=== PATIENT | male | born 1975 | race Caucasian/White ===

== ENCOUNTER 2016-03-21 10:19 | Inpatient (IN) | payer MEDICARE, OTHER ==
[~2016-03-21] VITALS: Ht 182.9 cm; Wt 86.2 kg
[~2016-03-21 10:19] MED LIST: CARI350T PO; HYDR1TAB PO; OXYC-128 PO
[2016-03-21] MEDS ORDERED: MORPHINE SULFATE INJ 4 MG/ML DISP.SYRIN ONE (10:29)
[2016-03-21] MEDS ORDERED: ONDANSETRON HCL/PF 4 MG/2 ML VIAL ONE (10:29)
[2016-03-21] MEDS ORDERED: IV NS 0.9% 1,000 ML ONE (10:32)
[2016-03-21] MEDS ORDERED: IV SET PRIMARY 1 EA INFUS.SET MC ONE ×2 (10:32→12:32)
[2016-03-21] MEDS ORDERED: HYDROMORPHONE 1 MG/1 ML DISP.SYRIN ONE (10:47)
[2016-03-21 10:49] LABS: BASOPHILS % (AUTO) 0.1 % (0.0-2.0); DIFF TOTAL % 100 %; HEMATOCRIT 46 % (39-51); HEMOGLOBIN 15.8 g/dL (13.5-17.5); LYMPHOCYTES # (AUTO) 0.7 /CMM (0.8-4.8); MEAN CORPUSCULAR HEMOGLOBIN 29 PG (26.0-33.0); MEAN CORPUSCULAR HGB CONC 34 g/dl (31.0-36.0); MEAN CORPUSCULAR VOLUME 85 fL (80-96); MONOCYTES % (AUTO) 5.3 % (2.0-12.0); NEUTROPHILS # (AUTO) 16.7 /CMM (1.8-8.9); NEUTROPHILS % (AUTO) 90.6 % (43.0-81.0); PLATELET COUNT (AUTO) 246 /CMM (150-450); RED BLOOD CELL COUNT(AUTO) 5.44 MIL/uL (4.5-6.0); WHITE BLOOD COUNT (AUTO) 18.4 K/uL (4.3-11.0)
[2016-03-21 10:50] LABS: CALCIUM, SERUM 8.3 mg/dL (8.5-10.1); CREATININE 1.2 mg/dL (0.6-1.3); POTASSIUM 3.3 mmol/L (3.5-5.1)
[2016-03-21 10:57] LABS: ALBUMIN 3.7 g/dL (3.4-5.0); BILIRUBIN,DIRECT 1.8 mg/dL (0.0-0.2); BILIRUBIN,TOTAL 3.3 mg/dL (0.2-1.0); INDIRECT BILIRUBIN 1.5 mg/dL (0.0-1.1); TOTAL PROTEIN, SERUM 7.2 g/dL (6.4-8.2)
[2016-03-21] MEDS ORDERED: ONDANSETRON HCL/PF 4 MG/2 ML VIAL IVP ONE (11:00)
[2016-03-21] MEDS ORDERED: MORPHINE SULFATE INJ 2 MG/ML DISP.SYRIN IV ONE (11:00)
[2016-03-21] MEDS ORDERED: HYDROMORPHONE 1 MG/1 ML DISP.SYRIN IV ONE (11:00)
[2016-03-21] MEDS ORDERED: IV NS 0.9% 1,000 ML BAG IV ONE (11:00)
[2016-03-21] MEDS ORDERED: PIPERACILLIN /TAZOBACTAM 3.375 G in IV D5W 50 ML IV ONE (12:00)
[2016-03-21 12:21] LABS: KETONES,URINE 40 (NEGATIVE); LEUKOCYTE ESTERASE ,URINE Negative (NEGATIVE); PH,URINE 7.5 (5.0-8.0)
[2016-03-21 12:31] LABS: ADD UA MICROSCOPIC YES
[2016-03-21 12:50] LABS: ADD URINE CULTURE NO; RBC,URINE 0-2 /HPF (0-2); WBC,URINE 0-2 /HPF (0-3)
[2016-03-21 13:07] VITALS: BP 112/65
[2016-03-21] MEDS ORDERED: Potassium Chloride 20 MEQ in IV D5/ 0.9% NACL 1,000 ML IV PRN (13:30)
[2016-03-21] MEDS ORDERED: Lexapro (13:32)
[2016-03-21] MEDS ORDERED: abilify (13:32)
[2016-03-21] MEDS ORDERED: IV SET PRIMARY PUMP SET 1 EA INFUS.SET MC ONE ×3 (13:54→16:22)
[2016-03-21] MEDS ORDERED: VANCOMYCIN 1 GM in IV D5W 250 ML IV ONE (14:00)
[2016-03-21] MEDS ORDERED: SECONDARY IV SET 1 EA INFUS.SET MC ONE ×2 (14:02→16:16)
[2016-03-21] MEDS: POTASSIUM CL. PREMIX PERIPHER. 50 ML IV SCH ×4 (14:26→17:59)
[2016-03-21] MEDS: IV D5/ 0.9% NACL 1,000 ML IV PRN ×2 (14:27→22:28)
[2016-03-21 14:57] LABS: ALBUMIN 3.2 g/dL (3.4-5.0); BILIRUBIN,DIRECT 1.2 mg/dL (0.0-0.2); BILIRUBIN,TOTAL 2.5 mg/dL (0.2-1.0); INDIRECT BILIRUBIN 1.3 mg/dL (0.0-1.1); TOTAL PROTEIN, SERUM 6.3 g/dL (6.4-8.2)
[2016-03-21 16:00] VITALS: BP 105/68
[2016-03-21] MEDS: MORPHINE SULFATE INJ 2 MG/ML DISP.SYRIN IV PRN ×2 (16:27→22:57)
[2016-03-21] MEDS: MEROPENEM 1 G in IV NS 0.9% 100 ML IV SCH ×2 (16:30→22:28)
[2016-03-21 20:00] VITALS: BP 99/54
[2016-03-21] MEDS ORDERED: FEE PK DOSING 1 MIN EA MC ONE (20:47)
[2016-03-21 22:55] VITALS: BP 105/58
[2016-03-21] MEDS: VANCOMYCIN 1 GM in IV D5W 250 ML IV SCH (23:59)
[2016-03-22] MEDS ORDERED: SECONDARY IV SET 1 EA INFUS.SET MC ONE
[2016-03-22] MEDS: MORPHINE SULFATE INJ 2 MG/ML DISP.SYRIN IV PRN ×3 (02:49→10:36)
[2016-03-22] MEDS: IV D5/ 0.9% NACL 1,000 ML IV PRN ×3 (06:40→22:17)
[2016-03-22] MEDS: MEROPENEM 1 G in IV NS 0.9% 100 ML IV SCH ×3 (06:40→22:16)
[2016-03-22 07:01] LABS: BASOPHILS % (AUTO) 0.3 % (0.0-2.0); DIFF TOTAL % 100 %; EOSINOPHILS % (AUTO) 0.3 % (0.0-6.0); HEMATOCRIT 39 % (39-51); HEMOGLOBIN 13.2 g/dL (13.5-17.5); INR 1.08 (0.87-1.13); LYMPHOCYTES # (AUTO) 1.2 /CMM (0.8-4.8); LYMPHOCYTES % (AUTO) 10.2 % (20.0-44.0); MEAN CORPUSCULAR HEMOGLOBIN 29 PG (26.0-33.0); MEAN CORPUSCULAR HGB CONC 34 g/dl (31.0-36.0); MEAN CORPUSCULAR VOLUME 86 fL (80-96); MONOCYTES # (AUTO) 0.8 /CMM (0.1-1.30); NEUTROPHILS # (AUTO) 9.6 /CMM (1.8-8.9); NEUTROPHILS % (AUTO) 82.2 % (43.0-81.0); PLATELET COUNT (AUTO) 222 /CMM (150-450); PROTHROMBIN TIME 11.7 SECS (9.5-12.7); RED BLOOD CELL COUNT(AUTO) 4.57 MIL/uL (4.5-6.0); WHITE BLOOD COUNT (AUTO) 11.7 K/uL (4.3-11.0)
[2016-03-22 07:15] LABS: ALBUMIN 2.7 g/dL (3.4-5.0); BILIRUBIN,TOTAL 1.2 mg/dL (0.2-1.0); CALCIUM, SERUM 7.8 mg/dL (8.5-10.1); CREATININE 0.9 mg/dL (0.6-1.3); POTASSIUM 3.6 mmol/L (3.5-5.1)
[2016-03-22] MEDS: VANCOMYCIN 1 GM in IV D5W 250 ML IV SCH ×3 (07:57→23:21)
[2016-03-22 08:00] VITALS: BP 101/82
[2016-03-22] MEDS: PANTOPRAZOLE 40 MG VIAL IV SCH (08:25)
[2016-03-22] MEDS ORDERED: ONDANSETRON HCL/PF 4 MG/2 ML VIAL IV PRN (14:00)
[2016-03-22] MEDS: HYDROMORPHONE INJ 2 MG/ML DISP.SYRIN IV PRN ×2 (14:11→18:25)
[2016-03-22] MEDS: ACETAMINOPHEN 325 MG TABLET PO PRN (15:42)
[2016-03-22 16:00] VITALS: BP 106/61
[2016-03-22 20:00] VITALS: BP 118/75
[2016-03-22] MEDS: ARIPIPRAZOLE 5 MG TABLET PO SCH ×2 (22:00→22:17)
[2016-03-23] MEDS: HYDROMORPHONE INJ 2 MG/ML DISP.SYRIN IV PRN ×5 (00:37→19:20)
[2016-03-23] MEDS: IV D5/ 0.9% NACL 1,000 ML IV PRN ×2 (05:31→18:27)
[2016-03-23] MEDS: MEROPENEM 1 G in IV NS 0.9% 100 ML IV SCH ×2 (06:01→14:33)
[2016-03-23 06:39] LABS: BASOPHILS % (AUTO) 0.2 % (0.0-2.0); DIFF TOTAL % 100 %; EOSINOPHILS # (AUTO) 0.3 /CMM (0.0-0.7); EOSINOPHILS % (AUTO) 3.9 % (0.0-6.0); HEMATOCRIT 35 % (39-51); HEMOGLOBIN 11.9 g/dL (13.5-17.5); LYMPHOCYTES # (AUTO) 1.6 /CMM (0.8-4.8); LYMPHOCYTES % (AUTO) 23.3 % (20.0-44.0); MEAN CORPUSCULAR HEMOGLOBIN 29 PG (26.0-33.0); MEAN CORPUSCULAR HGB CONC 34 g/dl (31.0-36.0); MEAN CORPUSCULAR VOLUME 86 fL (80-96); MONOCYTES # (AUTO) 0.7 /CMM (0.1-1.30); MONOCYTES % (AUTO) 9.5 % (2.0-12.0); NEUTROPHILS # (AUTO) 4.4 /CMM (1.8-8.9); NEUTROPHILS % (AUTO) 63.1 % (43.0-81.0); PLATELET COUNT (AUTO) 198 /CMM (150-450); RED BLOOD CELL COUNT(AUTO) 4.14 MIL/uL (4.5-6.0)
[2016-03-23] MEDS: VANCOMYCIN 1 GM in IV D5W 250 ML IV SCH ×2 (07:05→14:33)
[2016-03-23 07:09] LABS: ALBUMIN 2.6 g/dL (3.4-5.0); BILIRUBIN,DIRECT 0.1 mg/dL (0.0-0.2); BILIRUBIN,TOTAL 0.4 mg/dL (0.2-1.0); INDIRECT BILIRUBIN 0.3 mg/dL (0.0-1.1); PHOSPHORUS 2.2 mg/dL (2.5-4.9); TOTAL PROTEIN, SERUM 5.6 g/dL (6.4-8.2)
[2016-03-23] MEDS: ACETAMINOPHEN 325 MG TABLET PO PRN (07:13)
[2016-03-23 07:26] LABS: CALCIUM, SERUM 7.6 mg/dL (8.5-10.1); CREATININE 0.8 mg/dL (0.6-1.3); POTASSIUM 3.6 mmol/L (3.5-5.1)
[2016-03-23 08:00] VITALS: BP 120/74
[2016-03-23] MEDS: PANTOPRAZOLE 40 MG VIAL IV SCH (08:37)
[2016-03-23] MEDS ORDERED: ESCITALOPRAM OXALATE (10 MG) 10 MG TABLET PO SCH (09:00)
[2016-03-23] MEDS ORDERED: Sodium Phosphate 15 MMOL in IV D5W 250 ML IV ONE (09:30)
[2016-03-23] MEDS ORDERED: SECONDARY IV SET 1 EA INFUS.SET MC ONE (10:35)
[2016-03-23 16:00] VITALS: BP 122/98
[2016-03-23 20:29] VITALS: BP 124/72
[2016-03-24 06:36] LABS: CALCIUM, SERUM 7.9 mg/dL (8.5-10.1); CREATININE 0.7 mg/dL (0.6-1.3); POTASSIUM 3.5 mmol/L (3.5-5.1)
[2016-03-25] MEDS ORDERED: METR500T PO (09:16)
[2016-03-25] MEDS ORDERED: CIPR-262 PO (09:16)
[2016-03-25] MEDS ORDERED: ARIP5TAB4 PO (09:16)
[2016-03-25] MEDS ORDERED: ESCI10TA PO (09:16)
== END 2016-03-23 21:36 | disposition left against medical advice (07) | DRG 871 ==
LOC: ER 10:21 → MEDSG2 12:40
PROVIDERS: ADMIT Internal Medicine; ATTEND Internal Medicine
DX: A41.9 Sepsis, unspecified organism (principal); K85.10 Biliary acute pancreatitis without necrosis or infection; K80.00 Calculus of gallbladder with acute cholecystitis without obstruction; F32.9 Major depressive disorder, single episode, unspecified; G89.29 Other chronic pain; M54.30 Sciatica, unspecified side; E87.6 Hypokalemia; K76.0 Fatty (change of) liver, not elsewhere classified
CPT/HCPCS: 36415; 74181-TC; 76700-TC; 80048-TC; 80053-TC; 80076-TC; 80202-TC; 81000-TC; 82150-TC; 83605-TC; 83690-TC; 83735-TC; 84100-TC; 85025-TC; 85610-TC; 85730-TC; 87040-TC; 87081-TC; 87086-TC; 93307-TC; A4606; A9563; C9113; J1170; J2185; J2270; J2405; J2543; J3370; J3480; J7030; J7042; J7060; Z7610

== ENCOUNTER 2016-03-23 23:13 | Inpatient (IN) | payer MEDICARE, OTHER ==
[~2016-03-23] VITALS: Ht 182.9 cm; Wt 92.8 kg
[~2016-03-23 23:13] MED LIST changes: -CARI350T PO; -HYDR1TAB PO; +Lexapro; +abilify
[2016-03-24] MEDS ORDERED: ONDANSETRON HCL/PF 4 MG/2 ML VIAL IVP PRN (01:00)
[2016-03-24] MEDS ORDERED: ACETAMINOPHEN 325 MG TABLET PO PRN (01:00)
[2016-03-24] MEDS ORDERED: IV D5/ 0.9% NACL 1,000 ML IV SCH (01:00)
[2016-03-24] MEDS ORDERED: IV D5/ 0.9% NACL 1,000 ML IV ONE (01:04)
[2016-03-24] MEDS ORDERED: IV SET PRIMARY PUMP SET 1 EA INFUS.SET MC ONE (01:04)
[2016-03-24] MEDS ORDERED: VANCOMYCIN 1 GM in IV D5W 250 ML IV SCH ×2 (05:00→09:25)
[2016-03-24] MEDS ORDERED: SECONDARY IV SET 1 EA INFUS.SET MC ONE (05:04)
[2016-03-24] MEDS: MEROPENEM 1 G in IV NS 0.9% 100 ML IV SCH ×3 (05:18→21:16)
[2016-03-24 06:25] LABS: BASOPHILS % (AUTO) 0.3 % (0.0-2.0); DIFF TOTAL % 100 %; EOSINOPHILS # (AUTO) 0.3 /CMM (0.0-0.7); EOSINOPHILS % (AUTO) 4.5 % (0.0-6.0); HEMATOCRIT 35 % (39-51); HEMOGLOBIN 11.8 g/dL (13.5-17.5); LYMPHOCYTES # (AUTO) 1.9 /CMM (0.8-4.8); LYMPHOCYTES % (AUTO) 29.7 % (20.0-44.0); MEAN CORPUSCULAR HEMOGLOBIN 29 PG (26.0-33.0); MEAN CORPUSCULAR HGB CONC 34 g/dl (31.0-36.0); MEAN CORPUSCULAR VOLUME 85 fL (80-96); MONOCYTES # (AUTO) 0.5 /CMM (0.1-1.30); MONOCYTES % (AUTO) 8.3 % (2.0-12.0); NEUTROPHILS # (AUTO) 3.6 /CMM (1.8-8.9); NEUTROPHILS % (AUTO) 57.2 % (43.0-81.0); PLATELET COUNT (AUTO) 209 /CMM (150-450); RED BLOOD CELL COUNT(AUTO) 4.13 MIL/uL (4.5-6.0); WHITE BLOOD COUNT (AUTO) 6.4 K/uL (4.3-11.0)
[2016-03-24] MEDS ORDERED: HYDROMORPHONE INJ 2 MG/ML DISP.SYRIN ONE (06:58)
[2016-03-24] MEDS: HYDROMORPHONE INJ 2 MG/ML DISP.SYRIN IV PRN ×2 (07:06→11:13)
[2016-03-24 08:00] VITALS: BP 110/67
[2016-03-24] MEDS ORDERED: FEE PK DOSING 1 MIN EA MC ONE (09:29)
[2016-03-24] MEDS: PANTOPRAZOLE 40 MG VIAL IV SCH (09:36)
[2016-03-24] MEDS: IV D5/ 0.9% NACL 1,000 ML IV PRN ×2 (09:36→17:59)
[2016-03-24 10:27] LABS: ALBUMIN 2.6 g/dL (3.4-5.0); BILIRUBIN,DIRECT 0.1 mg/dL (0.0-0.2); BILIRUBIN,TOTAL 0.3 mg/dL (0.2-1.0); INDIRECT BILIRUBIN 0.2 mg/dL (0.0-1.1); TOTAL PROTEIN, SERUM 5.8 g/dL (6.4-8.2)
[2016-03-24 11:51] LABS: CALCIUM, SERUM 7.8 mg/dL (8.5-10.1); CREATININE 0.9 mg/dL (0.6-1.3); POTASSIUM 3.8 mmol/L (3.5-5.1)
[2016-03-24] MEDS: VANCOMYCIN 1 GM in IV D5W 250 ML IV SCH ×2 (14:50→22:23)
[2016-03-24 15:43] VITALS: BP 123/78
[2016-03-24 16:00] VITALS: BP 123/78
[2016-03-24 20:00] VITALS: BP 139/82
[2016-03-24] MEDS ORDERED: LORAZEPAM 0.5 MG TABLET PO PRN (20:00)
[2016-03-24] MEDS ORDERED: LORAZEPAM 0.5 MG TABLET ONE (20:16)
[2016-03-24] MEDS ORDERED: ARIPIPRAZOLE 5 MG TABLET PO SCH (22:00)
[2016-03-25] MEDS: HYDROMORPHONE INJ 2 MG/ML DISP.SYRIN IV PRN ×3 (00:10→10:06)
[2016-03-25] MEDS ORDERED: IV D5/ 0.9% NACL 1,000 ML IV ONE (02:14)
[2016-03-25] MEDS: IV D5/ 0.9% NACL 1,000 ML IV PRN (02:43)
[2016-03-25] MEDS: MEROPENEM 1 G in IV NS 0.9% 100 ML IV SCH (05:36)
[2016-03-25 06:53] LABS: BASOPHILS % (AUTO) 0.4 % (0.0-2.0); DIFF TOTAL % 100 %; EOSINOPHILS # (AUTO) 0.2 /CMM (0.0-0.7); EOSINOPHILS % (AUTO) 4.1 % (0.0-6.0); HEMATOCRIT 39 % (39-51); HEMOGLOBIN 13.2 g/dL (13.5-17.5); LYMPHOCYTES % (AUTO) 37.9 % (20.0-44.0); MEAN CORPUSCULAR HEMOGLOBIN 29 PG (26.0-33.0); MEAN CORPUSCULAR HGB CONC 34 g/dl (31.0-36.0); MEAN CORPUSCULAR VOLUME 85 fL (80-96); MONOCYTES # (AUTO) 0.5 /CMM (0.1-1.30); MONOCYTES % (AUTO) 10.4 % (2.0-12.0); NEUTROPHILS # (AUTO) 2.5 /CMM (1.8-8.9); NEUTROPHILS % (AUTO) 47.2 % (43.0-81.0); PLATELET COUNT (AUTO) 243 /CMM (150-450); RED BLOOD CELL COUNT(AUTO) 4.61 MIL/uL (4.5-6.0); WHITE BLOOD COUNT (AUTO) 5.3 K/uL (4.3-11.0)
[2016-03-25 07:28] LABS: CREATININE 0.8 mg/dL (0.6-1.3); PHOSPHORUS 3.1 mg/dL (2.5-4.9); POTASSIUM 3.5 mmol/L (3.5-5.1)
[2016-03-25] MEDS: VANCOMYCIN 1 GM in IV D5W 250 ML IV SCH (07:49)
[2016-03-25 08:00] VITALS: BP 129/75
[2016-03-25] MEDS: PANTOPRAZOLE 40 MG VIAL IV SCH (08:56)
[2016-03-25] MEDS ORDERED: ESCITALOPRAM OXALATE (10 MG) 10 MG TABLET PO SCH (09:00)
[2016-03-25] MEDS ORDERED: ARIP5TAB4 PO (09:16)
[2016-03-25] MEDS ORDERED: CIPR-262 PO (09:16)
[2016-03-25] MEDS ORDERED: ESCI10TA PO (09:16)
[2016-03-25] MEDS ORDERED: METR500T PO (09:16)
== END 2016-03-25 10:30 | disposition home or self-care (01) | DRG 871 ==
LOC: ER 23:17 → TELE2 23:51 → MEDSG2 03-24 07:05
PROVIDERS: ADMIT Nurse Practitioner Acute Care; ATTEND Nurse Practitioner Acute Care
DX: A41.9 Sepsis, unspecified organism (principal); K85.10 Biliary acute pancreatitis without necrosis or infection; K80.00 Calculus of gallbladder with acute cholecystitis without obstruction; K76.0 Fatty (change of) liver, not elsewhere classified; R16.0 Hepatomegaly, not elsewhere classified; M54.30 Sciatica, unspecified side; G89.29 Other chronic pain; F32.9 Major depressive disorder, single episode, unspecified; F43.10 Post-traumatic stress disorder, unspecified; E87.6 Hypokalemia; D63.8 Anemia in other chronic diseases classified elsewhere; E16.2 Hypoglycemia, unspecified; F41.9 Anxiety disorder, unspecified; Z68.28 Body mass index [BMI] 28.0-28.9, adult; Z91.5 Personal history of self-harm
CPT/HCPCS: 36415; 80048-TC; 80076-TC; 80202-TC; 83690-TC; 83735-TC; 84100-TC; 85025-TC; 87081-TC; A4606; C9113; J1170; J2185; J3370; J7030; J7042; J7060; Z7610

== ENCOUNTER 2016-05-16 01:54 | Emergency (ER) | payer MEDICARE, OTHER ==
[~2016-05-16] VITALS: Ht 182.9 cm; Wt 88.5 kg
[~2016-05-16 01:54] MED LIST changes: +ARIP5TAB4 PO; +CIPR-262 PO; +ESCI10TA PO; -Lexapro; +METR500T PO; -abilify
[2016-05-16] MEDS ORDERED: ONDANSETRON HCL/PF 4 MG/2 ML VIAL ONE (02:21)
[2016-05-16] MEDS ORDERED: KETOROLAC TROMETHAMINE INJ 30 MG/ML VIAL ONE (02:21)
[2016-05-16] MEDS ORDERED: IV SET PRIMARY 1 EA INFUS.SET MC ONE (02:21)
[2016-05-16] MEDS ORDERED: IV NS 0.9% 500 ML IV ONE (02:21)
[2016-05-16] MEDS ORDERED: HYDROMORPHONE 1 MG/1 ML DISP.SYRIN ONE ×2 (02:21→03:02)
[2016-05-16] MEDS ORDERED: IV NS 0.9% 500 ML BAG IV ONE (02:30)
[2016-05-16] MEDS ORDERED: ONDANSETRON HCL/PF 4 MG/2 ML VIAL IVP ONE (02:30)
[2016-05-16] MEDS ORDERED: KETOROLAC TROMETHAMINE INJ 30 MG/ML VIAL IV ONE (02:30)
[2016-05-16] MEDS ORDERED: HYDROMORPHONE INJ 2 MG/ML DISP.SYRIN IV ONE (02:30)
[2016-05-16 02:36] LABS: BASOPHILS % (AUTO) 0.4 % (0.0-2.0); DIFF TOTAL % 100 %; EOSINOPHILS # (AUTO) 0.2 /CMM (0.0-0.7); EOSINOPHILS % (AUTO) 2.2 % (0.0-6.0); HEMATOCRIT 46 % (39-51); HEMOGLOBIN 15.5 g/dL (13.5-17.5); LYMPHOCYTES # (AUTO) 2.6 /CMM (0.8-4.8); LYMPHOCYTES % (AUTO) 30.6 % (20.0-44.0); MEAN CORPUSCULAR HEMOGLOBIN 28 PG (26.0-33.0); MEAN CORPUSCULAR HGB CONC 34 g/dl (31.0-36.0); MEAN CORPUSCULAR VOLUME 85 fL (80-96); NEUTROPHILS # (AUTO) 4.8 /CMM (1.8-8.9); NEUTROPHILS % (AUTO) 55.8 % (43.0-81.0); PLATELET COUNT (AUTO) 293 /CMM (150-450); RED BLOOD CELL COUNT(AUTO) 5.46 MIL/uL (4.5-6.0); WHITE BLOOD COUNT (AUTO) 8.6 K/uL (4.3-11.0)
[2016-05-16 02:43] LABS: POTASSIUM 3.9 mmol/L (3.5-5.1)
[2016-05-16 02:44] LABS: CREATININE 1.1 mg/dL (0.6-1.3)
[2016-05-16 02:50] LABS: ALBUMIN 4.2 g/dL (3.4-5.0); BILIRUBIN,DIRECT 0.1 mg/dL (0.0-0.2); BILIRUBIN,TOTAL 0.3 mg/dL (0.2-1.0); INDIRECT BILIRUBIN 0.2 mg/dL (0.0-1.1); TOTAL PROTEIN, SERUM 7.9 g/dL (6.4-8.2)
[2016-05-16] MEDS ORDERED: HYDROMORPHONE 1 MG/1 ML DISP.SYRIN IV ONE (03:00)
[2016-05-16 03:55] VITALS: BP 121/78
== END 2016-05-16 04:12 | disposition home or self-care (01) ==
LOC: ER 01:55
DX: K80.20 Calculus of gallbladder without cholecystitis without obstruction (principal)
CPT/HCPCS: 36415; 76705; 80048; 80076; 83690; 85025; 96374; 96375; 96376; 99285; A4606; J1170 ×2; J1885; J2405; J7040; Z7610

== ENCOUNTER 2016-10-04 20:32 | Inpatient (IN) | payer MEDICARE, OTHER ==
[~2016-10-04] VITALS: Ht 185.4 cm; Wt 89.4 kg
[~2016-10-04 20:32] MED LIST changes: -OXYC-128 PO
--- NOTE | 2016-10-04 20:42 | NUR ---
pt bib to er bed . c/o ruq pain r/t r flank that started yesterday and worst today. also having n/v. gowned and placed on monitor. stable vitals. awaiting md payne.
--- NOTE | 2016-10-04 20:45 | NUR ---
dr wilkes at bedside for eval.
--- NOTE | 2016-10-04 20:50 | NUR ---
iv line started blood drawn and sent to lab.
[2016-10-04] MEDS ORDERED: ONDANSETRON HCL/PF 4 MG/2 ML VIAL ONE (20:52)
[2016-10-04] MEDS ORDERED: MORPHINE SULFATE INJ 4 MG/ML DISP.SYRIN ONE (20:52)
[2016-10-04 20:53] LABS: BASOPHILS % (AUTO) 0.2 % (0.0-2.0); EOSINOPHILS # (AUTO) 0.1 /CMM (0.0-0.7); EOSINOPHILS % (AUTO) 0.8 % (0.0-6.0); HEMATOCRIT 42 % (39-51); HEMOGLOBIN 13.8 g/dL (13.5-17.5); LYMPHOCYTES # (AUTO) 1.2 /CMM (0.8-4.8); LYMPHOCYTES % (AUTO) 15.9 % (20.0-44.0); MEAN CORPUSCULAR HEMOGLOBIN 28 PG (26.0-33.0); MEAN CORPUSCULAR HGB CONC 33 g/dl (31.0-36.0); MEAN CORPUSCULAR VOLUME 84 fL (80-96); MONOCYTES # (AUTO) 0.5 /CMM (0.1-1.30); MONOCYTES % (AUTO) 6.7 % (2.0-12.0); NEUTROPHILS # (AUTO) 6.1 /CMM (1.8-8.9); NEUTROPHILS % (AUTO) 76.4 % (43.0-81.0); PLATELET COUNT (AUTO) 316 /CMM (150-450); RDW COEFFICIENT OF VARIATION 13.5 (11.5-15.0); WHITE BLOOD COUNT (AUTO) 7.9 K/uL (4.3-11.0)
[2016-10-04] MEDS ORDERED: IV NS 0.9% 1,000 ML BAG IV ONE (21:00)
[2016-10-04] MEDS ORDERED: ONDANSETRON HCL/PF 4 MG/2 ML VIAL IVP ONE (21:00)
[2016-10-04] MEDS ORDERED: MORPHINE SULFATE INJ 2 MG/ML DISP.SYRIN IV ONE (21:00)
--- NOTE | 2016-10-04 21:00 | NUR ---
u/s tech at bedside for gallbladder ultrasound.
[2016-10-04] MEDS ORDERED: HYDROMORPHONE 1 MG/1 ML DISP.SYRIN ONE ×2 (21:03→21:47)
[2016-10-04 21:04] LABS: CALCIUM, SERUM 9.3 mg/dL (8.5-10.1); CARBON DIOXIDE 31 mmol/L (21-32); CHLORIDE 104 mmol/L (98-107); GLUCOSE 113 mg/dL (74-106); SODIUM SERUM 142 mmol/L (136-145); UREA NITROGEN, BLOOD 10 mg/dL (7-18)
--- NOTE | 2016-10-04 21:05 | NUR ---
1 mg dilaudid given ivp per ermd verbal order. pt is stating morphine is not working and is refusing u/s. ermd at bedside. verbal order carried out.
[2016-10-04 21:10] LABS: ALANINE AMINOTRANSFERASE 518 U/L (12-78); ALBUMIN 4.4 g/dL (3.4-5.0); ALKALINE PHOSPHATASE 199 U/L (46-116); ASPARTATE AMINOTRANSFERASE 354 U/L (15-37); BILIRUBIN,DIRECT 2.7 mg/dL (0.0-0.2); BILIRUBIN,TOTAL 3.5 mg/dL (0.2-1.0); TOTAL PROTEIN, SERUM 7.6 g/dL (6.4-8.2)
[2016-10-04 21:11] LABS: LIPASE 9262 U/L (73-393)
[2016-10-04 21:12] LABS: TROPONIN I < 0.017 ng/mL (0.00-0.056)
--- NOTE | 2016-10-04 21:24 | NUR ---
CALLED DR.SAM FORD, LEFT MESSAGE ON VOICEMAIL
--- NOTE | 2016-10-04 21:27 | NUR ---
CALLED NURSING SUP. FOR MS BED
--- NOTE | 2016-10-04 21:28 | NUR ---
[facility] PAGED, DR. FLORENCE TREE TRIMMER HELPER
[2016-10-04] MEDS ORDERED: HYDROMORPHONE 1 MG/1 ML DISP.SYRIN IV ONE ×2 (21:30→22:00)
--- NOTE | 2016-10-04 21:31 | NUR ---
ER TALKING TO DR. GOINS REGARDING PT ADMISSION.
[2016-10-04] MEDS ORDERED: IV NS 0.9% 1,000 ML IV PRN (21:36)
--- NOTE | 2016-10-04 21:36 | NUR ---
CALLED (BUSINESS DEVELOPMENT SURGEON), TRANSFERRED CALL TO DR. MENDEZ
--- NOTE | 2016-10-04 21:45 | NUR ---
report given to celso. pt awaiting transfer to floor.
[2016-10-04] MEDS ORDERED: CT SWABBABLE VALVE TRANS SET 1 EA INFUS.SET MC ONE (21:46)
--- NOTE | 2016-10-04 21:54 | NUR ---
pt taken to radiology fo abdominal ct scan via gurney.
[2016-10-04] MEDS ORDERED: MAGNESIUM HYDROXIDE 30 ML UDC PO PRN (22:00)
[2016-10-04] MEDS ORDERED: Z GUARD REMEDY 2 OZ OINT TP PRN (22:00)
[2016-10-04] MEDS ORDERED: ACETAMINOPHEN 325 MG TABLET PO PRN (22:00)
[2016-10-04] MEDS ORDERED: HYDROMORPHONE INJ 2 MG/ML DISP.SYRIN IV PRN (22:00)
[2016-10-04] MEDS ORDERED: ZOLPIDEM TARTRATE 5 MG TABLET PO PRN (22:00)
[2016-10-04] MEDS ORDERED: HYDROCODONE/APAP 5/325MG 1 EACH TABLET PO PRN (22:00)
[2016-10-04] MEDS ORDERED: PANTOPRAZOLE 40 MG TABLET.DR PO SCH (22:00)
[2016-10-04] MEDS ORDERED: LEVOFLOXACIN 500 MG /D5W 100ML 500 MG in PREMIX 1 EA IV SCH (22:00)
[2016-10-04] MEDS ORDERED: MAG HYDROX/AL HYDROX/SIMETH 30 ML UDC PO PRN (22:00)
[2016-10-04 22:10] VITALS: BP 124/77
[2016-10-04 22:20] VITALS: BP 124/77
[2016-10-04] MEDS: IV NS 0.9% 1,000 ML IV PRN (22:26)
--- NOTE | 2016-10-04 22:45 | NUR ---
ADMITTED A 41Y/O M. A, OX4. ANXIOUS AND RESTLESS W/ C/O ABD PAIN ON RUQ. BREATHING EVENLY. NO SOB. NAD. SKIN WARM AND DRY, VS: WNL. AFEBRILE. MEDICAL INFORMATION WAS OBTAINED FROM THE PT AND MD/ER RECORDS. BODY CHECK PROVIDED . CALL LIGHT WITHIN REACH. WILL CONT TO MONITOR AND WILL F/U W/ MD'S ORDERS.
[2016-10-04] MEDS ORDERED: LEVOFLOXACIN 500 MG /D5W 100ML 100 ML IV ONE (22:46)
[2016-10-04] MEDS ORDERED: METRONIDAZOLE 500MG/ NS 100ML 200 ML IV ONE (22:47)
[2016-10-04] MEDS: METRONIDAZOLE 500MG/ NS 100ML 500 MG in PREMIX 1 EA IV SCH (22:51)
[2016-10-04] MEDS: ONDANSETRON HCL/PF 4 MG/2 ML VIAL IVP PRN (22:55)
--- NOTE | 2016-10-04 22:55 | NUR ---
ZOFRAN 4MG GIVEN ORDERED FOR C/O NAUSEA. WILL CONT TO MONITOR
[2016-10-04] MEDS ORDERED: HYDROMORPHONE INJ 2 MG/ML DISP.SYRIN ONE (23:25)
--- NOTE | 2016-10-04 23:28 | NUR ---
DIALUDID 1MG GIVEN ORDERED FOR C/O SEVERE ABD PAIN. WILL CONT TO MONITOR,
--- NOTE | 2016-10-04 23:54 | NUR ---
PT WAS SEEN AND EXAMINED BY DR. FLORENCE. MD /W A NEW ORDER TO CHANGE THE DILAUDID 1MG FROM Q4HRS TO Q2HRS PRN. ALSO W/ A VERBAL ORDER TO CHANGE THE PROTONIX FROM PO TO IV DUE TO NPO STATUS. WILL CONT TO MONITOR
[2016-10-05] MEDS ORDERED: PANTOPRAZOLE 40 MG VIAL ONE (00:17)
[2016-10-05] MEDS ORDERED: HYDROMORPHONE INJ 2 MG/ML DISP.SYRIN IV PRN (01:00)
[2016-10-05] MEDS ORDERED: HYDROMORPHONE INJ 2 MG/ML DISP.SYRIN ONE ×2 (01:41→03:44)
--- NOTE | 2016-10-05 01:42 | NUR ---
DIALUDID 1MG GIVEN ORDERED FOR C/O SEVERE ABD PAIN. WILL CONT TO MONITOR,
--- NOTE | 2016-10-05 02:30 | NUR ---
PT VERY AGITATED AND RESTLESS . W/ CONSTANT C/O PAIN . STATED THAT 1MG DILAUDID IS NOT HELPING HIM AT ALL. REMOVED HIS IV LINE AND STATED WILLING TO LEAVE THE HOSPITAL. SPOKE TO THE PT AND CALMED HIM DOWN AND PROMISED HIM TO GET A HOLD OF DRJannet AND MANAGE HIS PAIN MUCH POSSIBLE. NEW IV LINE WAS STARTED ON HIS R HAND. WILL CONT TO MONITOR,
--- NOTE | 2016-10-05 02:42 | NUR ---
SPOKE TO DR. SENA SURGEON ON THE FLOOR RE PT CONSTANT C/O PAIN, BEING RESTLESS AND UNABLE TO STAY STILL . DR LEWIS REVIEWED THE PT'S CHART W/ AN ORDER TO INCREASE THE DIALUDID TO 2MG Q2HRS PRN HOWEVER DUE TO HIGH DOSE OF NARCOTIC TO PLACE PT ON TELE AND CONSTANT O2 SAT MONITORING. PT WAS PLACED ON HEART MONITOR AND CONSTANT OXYGEN MONITORING , O2 SAT:97% ON RA AT THIS TIME. WILL CONT TO MONITOR.
[2016-10-05] MEDS: HYDROMORPHONE INJ 2 MG/ML DISP.SYRIN IV PRN ×6 (03:53→23:24)
--- NOTE | 2016-10-05 03:57 | NUR ---
DIALUDID 2MG ivp GIVEN ORDERED FOR C/O SEVERE ABD PAIN. WILL CONT TO MONITOR
[2016-10-05] MEDS: METRONIDAZOLE 500MG/ NS 100ML 500 MG in PREMIX 1 EA IV SCH ×3 (04:46→20:52)
--- NOTE | 2016-10-05 06:23 | NUR ---
RN NOTE; PT IN BED DOZING INTERMITTENTLY. BREATHING EVENLY. NO SOB. ON CONTINUOUS HEART AND O2 SAT MONITORING DUE TO HIGH DOSE OF NARCOTICS. SR ON TELE MONITOR. O2 SAT>95% ON RA. PAIN MED GIVEN ORDERED PER PT'S REQUEST. RESPONDING WELL. ON ONGOING IVF HYDRATION. NPO AT THIS TIME. NEEDS ATTENDED . CALL LIGHT WITHIN REACH. WILL CONT TO MONITOR AND WILL ENDORSE TO AM SHIFT FOR MIRZA.
[2016-10-05 06:30] LABS: BASOPHILS % (AUTO) 0.3 % (0.0-2.0); EOSINOPHILS % (AUTO) 0.2 % (0.0-6.0); HEMATOCRIT 39 % (39-51); HEMOGLOBIN 13.4 g/dL (13.5-17.5); LYMPHOCYTES # (AUTO) 0.7 /CMM (0.8-4.8); LYMPHOCYTES % (AUTO) 9.8 % (20.0-44.0); MEAN CORPUSCULAR HEMOGLOBIN 29 PG (26.0-33.0); MEAN CORPUSCULAR HGB CONC 34 g/dl (31.0-36.0); MEAN CORPUSCULAR VOLUME 85 fL (80-96); MONOCYTES # (AUTO) 0.4 /CMM (0.1-1.30); MONOCYTES % (AUTO) 5.6 % (2.0-12.0); NEUTROPHILS # (AUTO) 6.4 /CMM (1.8-8.9); NEUTROPHILS % (AUTO) 84.1 % (43.0-81.0); PLATELET COUNT (AUTO) 266 /CMM (150-450); RDW COEFFICIENT OF VARIATION 14.5 (11.5-15.0); RED BLOOD CELL COUNT(AUTO) 4.63 MIL/uL (4.5-6.0); WHITE BLOOD COUNT (AUTO) 7.6 K/uL (4.3-11.0)
[2016-10-05 06:56] LABS: ALBUMIN 3.5 g/dL (3.4-5.0); BILIRUBIN,TOTAL 3.7 mg/dL (0.2-1.0); CALCIUM, SERUM 8.3 mg/dL (8.5-10.1); CREATININE 0.9 mg/dL (0.6-1.3); MAGNESIUM 2.1 mg/dL (1.8-2.4); PHOSPHORUS 3.1 mg/dL (2.5-4.9); POTASSIUM 4.2 mmol/L (3.5-5.1); TOTAL PROTEIN, SERUM 6.7 g/dL (6.4-8.2)
--- NOTE | 2016-10-05 07:05 | NUR ---
TOOL AND DIE SUPERVISOR OPENING NOTES RECEIVED PT. FROM NIGHTSHIFT NURSE IN STABLE CONDITION. PT. IS A/O X4. NO SOB OR SIGNS OF DISTRESS NOTED. ON ROOM AIR AND SATING WELL @ 99%. BREATHING IS EVEN AND UNLABORED. PT. COMPLAINS OF ABDOMINAL PAIN RATED AN 8/10. PT. DESCRIBES HIS PAIN ACHING AND SHARP. WILL FURTHER ASSESS PAIN AND ADMINISTER PRN DILAUDID. PT. IS ON TELE MONITOR DUE TO THE FREQUENCY OF HIS PAIN MEDICATION. HE IS CURRENTLY SINUS RHYTHM ON THE MONITOR. BP AND HR REMAIN WNL. NPO STATUS MAINTAINED FOR SCHEDULED HIDA SCAN. IV PRESENT ON RIGHT AC 22 G PATENT, INTACT AND INFUSING NS @ 150ML/HR. PT. IS TOLERATING INFUSION WELL. NO REDNESS OR SIGNS OF INFILTRATION NOTED. BED IN LOW LOCKED POSITION, SIDE RAILS UP X2, CALL LIGHT WITHIN REACH. WILL CONTINUE TO CLOSELY MONITOR.
[2016-10-05 07:18] VITALS: BP 101/56
[2016-10-05] MEDS ORDERED: OXYC30TA2 PO (07:31)
[2016-10-05] MEDS ORDERED: ARIP5TAB4 PO (07:31)
[2016-10-05] MEDS ORDERED: ESCI10TA PO (07:31)
[2016-10-05] MEDS ORDERED: CARI350T PO (07:31)
[2016-10-05] MEDS ORDERED: BUPR100T6 PO (07:31)
[2016-10-05 08:00] VITALS: BP 101/56
[2016-10-05] MEDS: ONDANSETRON HCL/PF 4 MG/2 ML VIAL IVP PRN ×3 (08:19→23:23)
--- NOTE | 2016-10-05 09:21 | NUR ---
TEST BORER HELPER NOTES PT. TAKEN DOWN TO NUCLEAR MED FOR HIDA SCAN
--- NOTE | 2016-10-05 10:59 | NUR ---
CHARGE ENTRY CLERK NOTES PT. BACK FROM HIDA SCAN IN STABLE CONDITION
--- NOTE | 2016-10-05 11:51 | NUR ---
AUTO SELF SERVICE STATION ATTENDANT NOTES DR. FLORENCE CALLED IN REGARDS TO PATIENT'S DIET. PER DR. FLORENCE "PT. CAN HAVE ICE CHIPS, BUT KEEP NPO FOR NOW"
[2016-10-05 12:00] VITALS: BP 108/64
[2016-10-05] MEDS ORDERED: PANTOPRAZOLE 40 MG VIAL IV SCH ×2 (12:00)
[2016-10-05] MEDS: FAMOTIDINE/PF INJ 20 MG/2 ML VIAL IV SCH ×2 (13:05→20:52)
[2016-10-05] MEDS: IV NS 0.9% 1,000 ML IV PRN ×2 (13:05→20:52)
[2016-10-05 16:00] VITALS: BP 101/57
--- NOTE | 2016-10-05 18:45 | NUR ---
MOTHER BABY RN CLOSING NOTES PT. REMAINS IN STABLE CONDITION. ALL NEEDS WERE MET DURING SHIFT AND ORDERS CARRIED OUT ACCORDINGLY. PAIN WAS PROPERLY MANAGED WITH DILAUDID 2MG. VITAL SIGNS REMAIN STABLE. ALL SAFETY MEASURES IN PLACE. WILL ENDORSE TO NIGHTSHIFT NURSE FOR MIRZA
--- NOTE | 2016-10-05 19:30 | NUR ---
METAL FURNITURE ASSEMBLY SUPERVISOR NOTES Received patient in bed, awake and alert, oriented x4 , verbally responsive, able to make needs known. No c/o pain or discomfort at this time. Discussed POC with patient, no concerns at this time will continue to monitor.
[2016-10-05 20:00] VITALS: BP 121/76
[2016-10-05 20:16] VITALS: BP 121/76
[2016-10-05] MEDS: LEVOFLOXACIN 500 MG /D5W 100ML 500 MG in PREMIX 1 EA IV SCH (22:13)
[2016-10-06 00:33] VITALS: BP 108/67
[2016-10-06] MEDS: ONDANSETRON HCL/PF 4 MG/2 ML VIAL IVP PRN ×4 (00:47→22:29)
[2016-10-06] MEDS: HYDROMORPHONE INJ 2 MG/ML DISP.SYRIN IV PRN ×11 (01:30→23:55)
[2016-10-06 04:02] VITALS: BP 115/72
[2016-10-06] MEDS: METRONIDAZOLE 500MG/ NS 100ML 500 MG in PREMIX 1 EA IV SCH ×3 (04:03→20:35)
[2016-10-06 06:23] LABS: BASOPHILS % (AUTO) 0.2 % (0.0-2.0); EOSINOPHILS # (AUTO) 0.2 /CMM (0.0-0.7); EOSINOPHILS % (AUTO) 3.4 % (0.0-6.0); HEMATOCRIT 35 % (39-51); HEMOGLOBIN 12.2 g/dL (13.5-17.5); LYMPHOCYTES # (AUTO) 1.2 /CMM (0.8-4.8); LYMPHOCYTES % (AUTO) 16.3 % (20.0-44.0); MEAN CORPUSCULAR HEMOGLOBIN 29 PG (26.0-33.0); MEAN CORPUSCULAR HGB CONC 35 g/dl (31.0-36.0); MEAN CORPUSCULAR VOLUME 84 fL (80-96); MONOCYTES # (AUTO) 0.5 /CMM (0.1-1.30); NEUTROPHILS # (AUTO) 5.2 /CMM (1.8-8.9); NEUTROPHILS % (AUTO) 73.1 % (43.0-81.0); PLATELET COUNT (AUTO) 237 /CMM (150-450); RDW COEFFICIENT OF VARIATION 14.7 (11.5-15.0); RED BLOOD CELL COUNT(AUTO) 4.15 MIL/uL (4.5-6.0); WHITE BLOOD COUNT (AUTO) 7.1 K/uL (4.3-11.0)
[2016-10-06 06:41] LABS: BILIRUBIN,DIRECT 0.2 mg/dL (0.0-0.2); BILIRUBIN,TOTAL 0.6 mg/dL (0.2-1.0); CALCIUM, SERUM 7.9 mg/dL (8.5-10.1); CREATININE 0.8 mg/dL (0.6-1.3); POTASSIUM 3.8 mmol/L (3.5-5.1)
[2016-10-06 07:00] VITALS: BP 130/78
--- NOTE | 2016-10-06 07:27 | NUR ---
BRICK KILN BURNER NOTES PATIENT IN BED ALERT AND ORIENTED, COMPLAINS OF CHRONIC BACK PAIN AND ABDOMINAL PAIN WILL BE GIVEN PAIN MEDICATION FOR PAIN MANAGEMENT, NO DISTRESS NOTED, NO SHORTNESS OF BREATH, PATIENT IS NPO AT THIS TIME FOR POSSIBLE LAP YESSICA VS OPEN, WITH DR. AYALA, PIV ON RIGHT AC PATENT AND INTACT, IVF NS RUNNING AT 150ML/HR, ALL NEEDS ATTENDED, CALL LIGHT WITHIN REACH, WILL CONTINUE TO MONITOR.
[2016-10-06] MEDS: FAMOTIDINE/PF INJ 20 MG/2 ML VIAL IV SCH ×2 (08:01→20:35)
[2016-10-06] MEDS: IV NS 0.9% 1,000 ML IV PRN ×2 (08:09→19:57)
--- NOTE | 2016-10-06 11:28 | NUR ---
BUDGET SPECIALIST NOTES PLACED A CALL TO DR. SENA RE: SURGERY, PER MD CONTINUE TO KEEP HIM NPO FOR POSSIBLE LAP YESSICA TODAY, PATIENT MADE AWARE.
[2016-10-06 11:41] VITALS: BP 116/73
[2016-10-06 15:42] VITALS: BP 121/73
--- NOTE | 2016-10-06 17:50 | NUR ---
J2EE ARCHITECT NOTES RECEIVED UPDATE FROM OR, PATIENT IS SCHEDULED FOR SURGERY TOMORROW AT 10AM,, PATIENT MAY HAVE CLEAR LIQUID DIET FOR DINNER AND NPO AGAIN AFTER MIDNIGHT.
--- NOTE | 2016-10-06 18:22 | NUR ---
RETAIL PROJECT MERCHANDISER NOTES PATIENT ALERT AND ORIENTED, NO DISTRESS NOTED, DENIES PAIN OR DISCOMFORT NOTED, RECEIVED DILAUDID FOR PAIN MEDICATION, PIV PATENT AND INTACT, IVF INFUSING AT 150ML/HR, FAMILY AT BEDSIDE, TELE MONITOR SHOWS SINUS RHYTHM, ASSISTED WITH ADLS, CALL LIGHT WITHIN REACH, SAFETY MEASURES IN PLACED, WILL ENDORSE TO COMMUNITY PLANNING TECHNICIAN FOR MIRZA.
--- NOTE | 2016-10-06 19:05 | NUR ---
HOSPICE HOME CARE COORDINATOR OPENING NOTES: RECEIVED PT IN BED AND IS AWAKE. PT IS A/O X4. GIRLFRIEND AT BEDSIDE. NO DISTRESS NOTED, DENIES PAIN OR DISCOMFORT NOTED. IV PATENT AND INTACT AND IS BEING INFUSED WITH 150ML/HR OF IV 0.9% NS 1,000 ML. TELE MONITOR SHOWS SINUS RHYTHM. CALL LIGHT WITHIN REACH. BED KEPT IN LOCKED, LOWEST POSITION, AND SIDE RAILS X 2 UP. WILL CONTINUE TO MONITOR PT.
[2016-10-06 20:00] VITALS: BP 122/70
--- NOTE | 2016-10-06 20:38 | NUR ---
COAL SAMPLER NOTES: PT REQUESTED FOR HIS DILAUDID 2MG IV PAIN MED. PT COMPLAINED OF 6/10 HEADACHE AND ABDOMEN PAIN RADIATING TO HIS BACK. WILL CONTINUE TO MONITOR PT.
[2016-10-06] MEDS: LEVOFLOXACIN 500 MG /D5W 100ML 500 MG in PREMIX 1 EA IV SCH (22:29)
--- NOTE | 2016-10-06 23:55 | NUR ---
JOB PRINTER NOTES: PT IS COMPLAINING OF 7/10 ABDOMEN PAIN. PT WAS ADMINISTERED HIS DILAUDID 2MG IV. WILL CONTINUE TO MONITOR PT.
[2016-10-07] VITALS (10 sets, daily range): BP systolic 112–141; BP diastolic 62–94
[2016-10-07] MEDS: HYDROMORPHONE INJ 2 MG/ML DISP.SYRIN IV PRN ×8 (03:37→23:32)
--- NOTE | 2016-10-07 03:37 | NUR ---
TORCH CUTTER NOTES: PT IS COMPLAINING OF 8/10 ABDOMEN, BACK, AND HEADACHE. PT WAS ADMINISTERED HIS DILAUDID 2MG IV. WILL CONTINUE TO MONITOR PT.
[2016-10-07] MEDS: METRONIDAZOLE 500MG/ NS 100ML 500 MG in PREMIX 1 EA IV SCH ×3 (04:10→20:07)
[2016-10-07] MEDS: IV NS 0.9% 1,000 ML IV PRN (06:11)
--- NOTE | 2016-10-07 06:15 | NUR ---
MANAGEMENT PROFESSIONALS NOTES: PT IS COMPLAINING OF 7/10 HEADACHE, ABDOMEN, AND LOWER BACK PAIN. PT WAS ADMINISTERED HIS DILAUDID 2MG IV. WILL CONTINUE TO MONITOR PT.
--- NOTE | 2016-10-07 07:18 | NUR ---
QUARRY EXTRACTION WORKER CLOSING NOTES: ALL NEEDS WERE ATTENDED AND ANTICIPATED FOR. PT IS IN BED ASLEEP AND RESTING. PT IS A/O X4. PT AROUSES EASILY. NO DISTRESS NOTED AT THIS TIME. PAIN MEDS WERE GIVEN. IV ON R AC PATENT AND INTACT AND BEING INFUSED WITH 150ML/HR OF IV 0.9% NS 1,000 ML. TELE MONITOR SHOWS SINUS RHYTHM 54-64. CALL LIGHT WITHIN PT'S REACH. BED KEPT IN LOCKED, LOWEST POSITION, AND SIDE RAILS X 2 UP. ENDORSED TO AM NURSE FOR MIRZA.
--- NOTE | 2016-10-07 07:27 | NUR ---
SINGER SONGWRITER NOTES PATIENT IN BED ALERT AND ORIENTED, COMPLAINS OF BACK PAIN AND ABDOMINAL PAIN, PAIN MEDICATION WILL BE GIVEN ON NEXT DUE TIME, NO DISTRESS NOTED, NO SHORTNESS OF BREATH, PATIENT IS NPO AT THIS TIME FOR LAP YESSICA WITH DR. SENA, PIV ON RIGHT AC PATENT AND INTACT, IVF NS RUNNING AT 150ML/HR, ALL NEEDS ANTICIPATED AND MET, CALL LIGHT WITHIN REACH, SAFETY MEASURES IN PLACED, WILL CONTINUE TO MONITOR.
[2016-10-07] MEDS: ONDANSETRON HCL/PF 4 MG/2 ML VIAL IVP PRN (08:42)
[2016-10-07] MEDS: FAMOTIDINE/PF INJ 20 MG/2 ML VIAL IV SCH ×2 (08:42→20:07)
[2016-10-07] MEDS ORDERED: LIDOCAINE 0.5% HCL 50 ML VIAL ONE (09:36)
[2016-10-07] MEDS ORDERED: BUPIVACAINE MPF W/EPI 0.25% 30 ML VIAL ONE (09:36)
[2016-10-07] MEDS ORDERED: HYDROMORPHONE INJ 2 MG/ML DISP.SYRIN ONE ×2 (09:47→13:04)
[2016-10-07] MEDS ORDERED: FENTANYL PF 100MCG/2ML AMPUL ONE ×3 (09:47→13:22)
[2016-10-07] MEDS ORDERED: MIDAZOLAM HCL 2 MG/2ML VIAL ONE (09:48)
[2016-10-07] MEDS ORDERED: SUCCINYLCHOLINE CHLORIDE 20 MG/ML VIAL ONE (09:48)
[2016-10-07] MEDS ORDERED: ROCURONIUM BROMIDE 50 MG/5 ML ONE ×2 (09:48→11:56)
--- NOTE | 2016-10-07 10:00 | NUR ---
GRAIN MILLER HELPER NOTES PATIENT BROUGHT TO OR FOR SURGERY (LAP YESSICA VS OPEN) WITH DR. SENA.
[2016-10-07] MEDS ORDERED: DESFLURANE 240 ML BOTTLE IH ONE (12:04)
[2016-10-07] MEDS ORDERED: HEMOSTATIC MATRIX 10 ML 1 EACH PAD MC ONE (12:17)
[2016-10-07] MEDS ORDERED: LABETALOL HCL IV 100MG VIAL ONE (12:19)
[2016-10-07] MEDS ORDERED: ANESTHESIA TRAY IN PYXIS 1 EA TRAY MC ONE (13:21)
[2016-10-07] MEDS ORDERED: MEPERIDINE HCL/PF 50 MG/ML DISP.SYRIN ONE (13:25)
[2016-10-07] MEDS ORDERED: HYDROMORPHONE 1 MG/1 ML DISP.SYRIN ONE (13:35)
[2016-10-07] MEDS ORDERED: ONDANSETRON HCL/PF 4 MG/2 ML VIAL IVP PRN (14:00)
[2016-10-07] MEDS ORDERED: HYDROMORPHONE 1 MG/1 ML DISP.SYRIN IV PRN (14:00)
[2016-10-07] MEDS ORDERED: HYDROCODONE/APAP 10/325MG 1 EA TABLET PO PRN (14:00)
--- NOTE | 2016-10-07 14:05 | NUR ---
DELIVERY REPRESENTATIVE NOTES PATIENT CAME BACK FROM OR FOR S/P LAP YESSICA, CONDITION STABLE, VITAL STABLE, RECEIVED NEW ORDERS FROM DR. SENA, ORDER NOTED AND CARRIED OUT, FAXED TO PHARMACY, PATIENT COMPLAINTS OF PAIN 12/11, OFFERED DILAUDID AND AGREED, WILL BE GIVEN PAIN MEDICATION. VITALS MONITORED, [facility]
[2016-10-07] MEDS: IV LR 1000 ML 1,000 ML IV PRN (14:43)
--- NOTE | 2016-10-07 14:49 | NUR ---
PHYSICIANS AND SURGEONS NOTES PATIENT'S PAIN IS NOT RELIEVED WITH DILAUDID 1MG, REQUESTED TO INCREASE PAIN MEDICATION. DR. SENA MADE AWARE AND RECEIVED NEW ORDER TO INCREASE DILAUDID TO 2MG EVERY 2 HOURS AND PAIN MANAGEMENT CONSULT WITH DR. HERNANDEZ, ORDERS NOTED AND CARRIED OUT. PATIENT AWARE.
[2016-10-07] MEDS: HYDROCODONE/APAP 5/325MG 1 EACH TABLET PO PRN ×2 (15:43→20:51)
--- NOTE | 2016-10-07 18:23 | NUR ---
ELECTRICIAN ELEVATOR MAINTENANCE NOTES PATIENT IN BED, ALERT AND ORIENTED, FAMILY AT BEDSIDE, PATIENT COMPLAINTS OF INTERMITTENT ABDOMINAL PAIN, PATIENT IS SCHEDULED FOR PAIN MANAGEMENT CONSULT WITH DR. HERNANDEZ, PIV ON RAC PATENT AND FLUSHES WELL, LR RUNNING AT 120ML/HR AND TOLERATING WELL, LAP YESSICA DONE TODAY, 4 INCISIONS ON ABDOMEN WITH BRUISING AROUND THE AREA, PHOTO TAKEN, PATIENT IS ON CLEAR LIQUID DIET AND TOLERATING WELL, ALL NEEDS ATTENDED AND ANTICIPATED, CALL LIGHT WITHIN REACH, WILL CONTINUE TO MONITOR. Addendum: 10/07/16 at 1843 by CATRACHO ENRIQUEZ RN ADDENDUM: WILL ENDORSE TO DENTAL SALES REPRESENTATIVE FOR MIRZA.
--- NOTE | 2016-10-07 19:05 | NUR ---
FIELD AUTO APPRAISER OPENING NOTES: RECEIVED PT IN BED. PT IS A/OX 4. PT IS CONSTANTLY COMPLAINING OF ABDOMINAL PAIN. PT HAS IV ON RAC AND IS PATENT AND INTACT. IT IS BEING INFUSED WITH LR RUNNING AT 120ML/HR. PATIENT IS ON CLEAR LIQUIDS DIET AND TOLERATING WELL. WILL CONTINUE TO MONITOR PT.
--- NOTE | 2016-10-07 19:20 | NUR ---
BEND UP NOTES: PT COMPLAINING OF 8/10 AB PAIN. PT WAS ADMINISTERED DILAUDID 2MG IV. WILL CONTINUE TO MONITOR PT.
[2016-10-07] MEDS: CYCLOBENZAPRINE 10 MG TABLET PO SCH (20:07)
--- NOTE | 2016-10-07 20:51 | NUR ---
MERCHANDISE DELIVERER NOTES: PT STILL COMPLAINING OF PAIN IN HIS ABDOMEN 09/10. PT WAS ADMINISTERED NORCO 5-325MG PO. WILL CONTINUE TO MONITOR PT.
--- NOTE | 2016-10-07 21:24 | NUR ---
CIGARETTE MAKING EXAMINER NOTES: PT COMPLAINED OF 8/10 ABDOMEN PAIN. PT WAS ADMINISTERED DILAUDID 2MG IV. WILL CONTINUE TO MONITOR PT.
[2016-10-07] MEDS: LEVOFLOXACIN 500 MG /D5W 100ML 500 MG in PREMIX 1 EA IV SCH (22:22)
--- NOTE | 2016-10-07 23:32 | NUR ---
MULTIPLE SPINDLE ROUTER OPERATOR NOTES: PT COMPLAINED OF 10/10 ABDOMEN PAIN RADIATING TO HIS BACK. PT WAS ADMINISTERED DILAUDID 2MG IV. WILL CONTINUE TO MONITOR PT.
[2016-10-08] VITALS: BP 122/78
[2016-10-08] MEDS: HYDROMORPHONE INJ 2 MG/ML DISP.SYRIN IV PRN ×6 (01:41→21:17)
--- NOTE | 2016-10-08 01:41 | NUR ---
BIOMASS POWER PLANT SUPERINTENDENT NOTES: PT COMPLAINED OF 7/10 ABDOMEN AND BACK PAIN. PT WAS ADMINISTERED DILAUDID 2MG IV. WILL CONTINUE TO MONITOR PT.
[2016-10-08] MEDS: HYDROCODONE/APAP 5/325MG 1 EACH TABLET PO PRN (02:59)
[2016-10-08] MEDS: IV LR 1000 ML 1,000 ML IV PRN ×2 (03:06→17:04)
[2016-10-08 04:00] VITALS: BP 128/88
[2016-10-08] MEDS: METRONIDAZOLE 500MG/ NS 100ML 500 MG in PREMIX 1 EA IV SCH (04:19)
[2016-10-08] MEDS: CYCLOBENZAPRINE 10 MG TABLET PO SCH ×3 (04:28→21:11)
--- NOTE | 2016-10-08 05:04 | NUR ---
CHILD DAY CARE PROVIDER NOTES: PS IT COMPLAINING OF 8/10 ABDOMEN PAIN RADIATING TO HIS BACK. PT WAS ADMINISTERED DILAUDID 2MG IV. WILL CONTINUE TO MONITOR PT.
--- NOTE | 2016-10-08 06:28 | NUR ---
SUPERVISING FLOORPERSON NOTES: PT IS COMPLAINING OF 10/10 ABDOMEN AND BACK PAIN. PT IS CONSTANTLY COMPLAINING OF PAIN AND IS SAYING THAT THE PAIN MEDICATIONS DO NOT LAST LONG ENOUGH AND IS IN CONSTANT NEED OF PAIN MEDICATIONS. PT WAS ADMINISTERED NORCO 10-325MG PO. WILL CONTINUE TO MONITOR PT.
[2016-10-08 06:37] LABS: BASOPHILS % (AUTO) 0.4 % (0.0-2.0); EOSINOPHILS # (AUTO) 0.1 /CMM (0.0-0.7); EOSINOPHILS % (AUTO) 0.7 % (0.0-6.0); HEMATOCRIT 34 % (39-51); HEMOGLOBIN 11.9 g/dL (13.5-17.5); LYMPHOCYTES # (AUTO) 2.6 /CMM (0.8-4.8); LYMPHOCYTES % (AUTO) 27.7 % (20.0-44.0); MEAN CORPUSCULAR HEMOGLOBIN 30 PG (26.0-33.0); MEAN CORPUSCULAR HGB CONC 35 g/dl (31.0-36.0); MEAN CORPUSCULAR VOLUME 85 fL (80-96); MONOCYTES # (AUTO) 0.9 /CMM (0.1-1.30); MONOCYTES % (AUTO) 9.7 % (2.0-12.0); NEUTROPHILS # (AUTO) 5.8 /CMM (1.8-8.9); NEUTROPHILS % (AUTO) 61.5 % (43.0-81.0); PLATELET COUNT (AUTO) 236 /CMM (150-450); RDW COEFFICIENT OF VARIATION 14.8 (11.5-15.0); RED BLOOD CELL COUNT(AUTO) 4.05 MIL/uL (4.5-6.0); WHITE BLOOD COUNT (AUTO) 9.4 K/uL (4.3-11.0)
[2016-10-08 07:09] LABS: ALBUMIN 3.1 g/dL (3.4-5.0); BILIRUBIN,TOTAL 0.6 mg/dL (0.2-1.0); CALCIUM, SERUM 8.1 mg/dL (8.5-10.1); CREATININE 0.9 mg/dL (0.6-1.3); POTASSIUM 3.1 mmol/L (3.5-5.1); TOTAL PROTEIN, SERUM 6.2 g/dL (6.4-8.2)
[2016-10-08 07:25] VITALS: BP 134/78
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
--- NOTE | 2016-10-08 07:35 | NUR ---
TELE/RN NOTES PT. C/O PAIN 10/10 ON THE RIGHT SIDE OF HIS ABDOMEN. OFFERED PAIN MEDICATION, AND DILAUDID 2MG WAS GIVEN IVP.
--- NOTE | 2016-10-08 07:36 | NUR ---
MAGNETIC PROSPECTOR CLOSING NOTES: ALL NEEDS WERE ATTENDED AND ANTICIPATED FOR. PT IS IN BED AND IS STILL AWAKE AND CONSTANTLY COMPLAINING OF PAIN. PT HAS IV ON RAC AND IS PATENT AND INTACT. IT IS BEING INFUSED WITH LR RUNNING AT 120ML/HR. PATIENT IS ON CLEAR LIQUIDS DIET AND TOLERATING WELL. CALL LIGHT WITHIN PT'S REACH. SCD'S IN PLACE. ENCOURAGED PATIENT TO USE INCENTIVE SPIROMETER. ENDORSED TO AM NURSE FOR MIRZA.
[2016-10-08] MEDS: FAMOTIDINE/PF INJ 20 MG/2 ML VIAL IV SCH ×2 (08:07→21:12)
--- NOTE | 2016-10-08 10:00 | NUR ---
TELE/RN NOTES REMOVED PT.'S HOME MEDICATIONS FROM THE ROOM, AND SENT IT TO PHARMACY. MD AWARE OF PT.'S HOME MEDICATIONS.
[2016-10-08] MEDS ORDERED: POTASSIUM CHLORIDE 20 MEQ TAB.PRT.SR PO ONE (11:30)
[2016-10-08] MEDS: ALPRAZOLAM 0.5 MG TABLET PO SCH ×2 (12:00→17:00)
[2016-10-08] MEDS ORDERED: oxyCODONE IR immediate release 5 MG CAPSULE PO PRN (12:00)
[2016-10-08] MEDS: METRONIDAZOLE 500 MG TABLET PO SCH ×2 (12:23→21:11)
[2016-10-08] MEDS: CARISOPRODOL 350 MG TABLET PO SCH ×3 (12:24→21:11)
[2016-10-08] MEDS ORDERED: HYDROMORPHONE INJ 2 MG/ML DISP.SYRIN ONE (13:52)
[2016-10-08] MEDS ORDERED: CARISOPRODOL 350 MG TABLET PO PRN (14:00)
[2016-10-08] MEDS: buPROPion SR 100 MG TABLET.ER PO SCH (14:07)
[2016-10-08 16:00] VITALS: BP 126/74
[2016-10-08] MEDS: ESCITALOPRAM OXALATE (10 MG) 10 MG TABLET PO SCH (17:02)
--- NOTE | 2016-10-08 19:30 | NUR ---
TELE/RN CLOSING NOTES PT. IN BED SLEEPING COMFORTABLY. BREATHING ON ROOM AIR UNLABORED. PT. IS ON TELE MONITOR SINUS TACHYCARDIA 94 BPM. IV FLUIDS RUNNING AT 120 ML/HR. URINAL NEAR BEDSIDE. BED IS IN LOW POSITION, 2 SIDE RAILS UP, AND CALL LIGHT IS WITHIN REACH.
--- NOTE | 2016-10-08 19:31 | NUR ---
RN NOTE RECIEVED REPORT. PT ALERT AND ORIENTATED X3, RESTING COMFRTABLY IN BED. NO DISTRESS NOTED AT THIS TIME. BREATHING EVEN AND NON-LABORED. IV INTACT AND PATENT, NO SIGNS OF BLEEDING. TELE SR 8-'S. WILL MONITOR. CALL LIGHT IN REACH.
[2016-10-08 20:10] VITALS: BP 115/68
[2016-10-08] MEDS ORDERED: ARIPIPRAZOLE 5 MG TABLET PO SCH (22:00)
[2016-10-08] MEDS ORDERED: LEVOFLOXACIN (500MG) 500 MG TABLET PO SCH (23:00)
[2016-10-09 00:23] VITALS: BP 125/69
[2016-10-09] MEDS: oxyCODONE IR immediate release 5 MG CAPSULE PO PRN ×2 (01:07→08:30)
[2016-10-09 04:00] VITALS: BP 118/66
[2016-10-09] MEDS: CYCLOBENZAPRINE 10 MG TABLET PO SCH ×2 (04:59→13:19)
[2016-10-09] MEDS: METRONIDAZOLE 500 MG TABLET PO SCH ×2 (04:59→13:19)
[2016-10-09] MEDS: HYDROMORPHONE INJ 2 MG/ML DISP.SYRIN IV PRN ×3 (04:59→17:51)
[2016-10-09 06:51] VITALS: BP 98/72
--- NOTE | 2016-10-09 06:55 | NUR ---
RN NOTE NO SIGNICANT CHANGES OVERNIGHT. PT RESTING IN BED, NO S/S OF ANY DISTRESS. PAIN MANAGED EFFECTIVELY WITH PRN MEDICATION. IV INTACT AND PATENT, TOLERATING FLUIDS WELL. PT UP AMBULATING AND USING INCENTIVE SPIROMETER T/O SHIFT - EDUCATION PROVIDED. TELE SHOWS SR. CALL LIGHT IN REACH. WILL F/U WITH DAY SHIFT FOR MIRZA.
--- NOTE | 2016-10-09 07:47 | NUR ---
TELE/RN OPENING NOTES RECEIVED PT. SLEEPING COMFORTABLY IN BED. BREATHING UNLABORED ON ROOM AIR. NO S/S OF ACUTE DISTRESS. IV ACCESS ON LEFT HAND INTACT. BED IS IN LOW POSITION, 2 SIDE RAILS UP, AND CALL LIGHT IS WITHIN REACH. PT. HAS A 2 WHEEL WALKER NEAR BED SIDE AND INCENTIVE SPIROMETER.
[2016-10-09] MEDS: ALPRAZOLAM 0.5 MG TABLET PO SCH ×2 (08:29→17:00)
[2016-10-09] MEDS: FAMOTIDINE/PF INJ 20 MG/2 ML VIAL IV SCH (08:29)
[2016-10-09] MEDS: buPROPion SR 100 MG TABLET.ER PO SCH (08:29)
[2016-10-09] MEDS: ESCITALOPRAM OXALATE (10 MG) 10 MG TABLET PO SCH (08:29)
[2016-10-09] MEDS: CARISOPRODOL 350 MG TABLET PO SCH ×3 (08:29→17:23)
[2016-10-09] MEDS ORDERED: DOCUSATE SODIUM 100 MG CAPSULE PO SCH (09:30)
[2016-10-09 12:00] VITALS: BP 121/77
[2016-10-09 14:38] LABS: BASOPHILS % (AUTO) 0.3 % (0.0-2.0); EOSINOPHILS # (AUTO) 0.2 /CMM (0.0-0.7); EOSINOPHILS % (AUTO) 1.7 % (0.0-6.0); HEMATOCRIT 34 % (39-51); HEMOGLOBIN 11.7 g/dL (13.5-17.5); LYMPHOCYTES # (AUTO) 1.8 /CMM (0.8-4.8); LYMPHOCYTES % (AUTO) 20.8 % (20.0-44.0); MEAN CORPUSCULAR HEMOGLOBIN 29 PG (26.0-33.0); MEAN CORPUSCULAR HGB CONC 34 g/dl (31.0-36.0); MEAN CORPUSCULAR VOLUME 85 fL (80-96); MONOCYTES # (AUTO) 0.9 /CMM (0.1-1.30); MONOCYTES % (AUTO) 10.6 % (2.0-12.0); NEUTROPHILS # (AUTO) 5.8 /CMM (1.8-8.9); NEUTROPHILS % (AUTO) 66.6 % (43.0-81.0); PLATELET COUNT (AUTO) 236 /CMM (150-450); RDW COEFFICIENT OF VARIATION 14.4 (11.5-15.0); RED BLOOD CELL COUNT(AUTO) 4.02 MIL/uL (4.5-6.0); WHITE BLOOD COUNT (AUTO) 8.7 K/uL (4.3-11.0)
[2016-10-09 16:02] VITALS: BP 107/70
--- NOTE | 2016-10-09 17:00 | NUR ---
TELE/RN NOTES RECEIVED A TELEPHONE ORDER FOR MEDICAL CLEARANCE FOR PT. DISCHARGE, PER SURGEONS ORDER.
--- NOTE | 2016-10-09 17:44 | NUR ---
TELE/POOL INSTALLER NOTES PT. IS IN MEDICALLY STABLE CONDITION. PT. WAS PROVIDED DISCHARGE INSTRUCTIONS, AND VERBALIZED UNDERSTANDING. CHECKED AND SIGNED PT.'S BELONGINGS LIST WITH PT. DISCHARGE PAPERS SIGNED. PICTURES TAKEN OF ABDOMEN OF SURGICAL INCISIONS.
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
== END 2016-10-09 18:30 | disposition home or self-care (01) | DRG 417 ==
LOC: ER 20:33 → MED 21:51 → TELE 10-05 02:58
PROVIDERS: ADMIT Internal Medicine; ATTEND Internal Medicine
PROC: 0FN84ZZ Release Cystic Duct, Percutaneous Endoscopic Approach (ICD-10-PCS; 2016-10-07)
PROC: 3E0T3CZ (ICD-10-PCS; 2016-10-07)
PROC: 0FT44ZZ Resection of Gallbladder, Percutaneous Endoscopic Approach (ICD-10-PCS; principal; 2016-10-07 11:11)
DX: K80.10 Calculus of gallbladder with chronic cholecystitis without obstruction (principal); K85.10 Biliary acute pancreatitis without necrosis or infection; F11.20 Opioid dependence, uncomplicated; K83.8 Other specified diseases of biliary tract; D63.8 Anemia in other chronic diseases classified elsewhere; G89.29 Other chronic pain; M54.40 Lumbago with sciatica, unspecified side; Z79.899 Other long term (current) drug therapy
CPT/HCPCS: 36415; 76705-TC; 78226; 80048-TC; 80053-TC; 80061-TC; 80076-TC; 83690-TC; 83735-TC; 84100-TC; 84484-TC; 85025-TC; 87081-TC; 88304-TC; 88305-TC; A4216; A4606; A9537; C9113; J0330; J0690; J1100; J1170; J1956; J2175; J2250; J2270; J2405; J2704; J2710; J3010; J3490; J7030; J7120; Z7610

== ENCOUNTER 2016-10-28 17:09 | Emergency (ER) | payer MEDICARE, OTHER ==
[~2016-10-28] VITALS: Ht 185.4 cm; Wt 86.2 kg
[~2016-10-28 17:09] MED LIST changes: +BUPR100T6 PO; +CARI350T PO; -CIPR-262 PO; -METR500T PO; +OXYC30TA2 PO
--- NOTE | 2016-10-28 17:35 | NUR ---
SEEN BY MD. GARCIA. SAFETY AND COMFORT MEASURES PROVIDED. WILL MONITOR.
--- NOTE | 2016-10-28 17:50 | NUR ---
IV ACCESS STARTED. BLOOD DRAWN FOR LABS. PT MEDICATED ORDERED.
[2016-10-28] MEDS ORDERED: IV NS 0.9% 1,000 ML BAG IV ONE (18:00)
--- NOTE | 2016-10-28 18:00 | NUR ---
PT UNABLE TO PROVIDE URINE SAMPLE AT THIS TIME COMPLAINING OF WEAKNESS.
[2016-10-28 18:02] LABS: BASOPHILS # (AUTO) 0.1 /CMM (0.0-0.2); EOSINOPHILS # (AUTO) 1.5 /CMM (0.0-0.7); EOSINOPHILS % (AUTO) 13.8 % (0.0-6.0); HEMATOCRIT 44 % (39-51); HEMOGLOBIN 14.6 g/dL (13.5-17.5); MEAN CORPUSCULAR HEMOGLOBIN 28 PG (26.0-33.0); MEAN CORPUSCULAR HGB CONC 33 g/dl (31.0-36.0); MEAN CORPUSCULAR VOLUME 86 fL (80-96); MONOCYTES # (AUTO) 0.7 /CMM (0.1-1.30); MONOCYTES % (AUTO) 6.1 % (2.0-12.0); NEUTROPHILS # (AUTO) 6.7 /CMM (1.8-8.9); NEUTROPHILS % (AUTO) 61.1 % (43.0-81.0); PLATELET COUNT (AUTO) 452 /CMM (150-450); RDW COEFFICIENT OF VARIATION 14.3 (11.5-15.0); RED BLOOD CELL COUNT(AUTO) 5.17 MIL/uL (4.5-6.0)
[2016-10-28 18:28] LABS: APPEARANCE,URINE Clear (CLEAR); BILIRUBIN,URINE Negative (NEGATIVE); BLOOD, URINE Negative Ery/uL (NEGATIVE); COLOR,URINE Yellow (YELLOW); KETONES,URINE Negative (NEGATIVE); LEUKOCYTE ESTERASE ,URINE Negative (NEGATIVE); NITRITE, URINE Negative (NEGATIVE); PH,URINE 6.5 (5.0-8.0); PROTEIN,URINE Negative (NEGATIVE); UGLUCOSE Negative (NEGATIVE); UROBILINOGEN,URINE 0.2 EU/dL (0.2)
[2016-10-28 18:39] LABS: CALCIUM, SERUM 8.9 mg/dL (8.5-10.1); CARBON DIOXIDE 26 mmol/L (21-32); CHLORIDE 103 mmol/L (98-107); GLUCOSE 109 mg/dL (74-106); POTASSIUM 4.4 mmol/L (3.5-5.1); SODIUM SERUM 139 mmol/L (136-145); UREA NITROGEN, BLOOD 11 mg/dL (7-18)
[2016-10-28 18:44] LABS: ALANINE AMINOTRANSFERASE 37 U/L (12-78); ALBUMIN 3.5 g/dL (3.4-5.0); ALCOHOL, BLOOD < 3 mg/dL (0-0); ALKALINE PHOSPHATASE 104 U/L (46-116); ASPARTATE AMINOTRANSFERASE 18 U/L (15-37); BILIRUBIN,DIRECT 0.1 mg/dL (0.0-0.2); BILIRUBIN,TOTAL 0.3 mg/dL (0.2-1.0); TOTAL PROTEIN, SERUM 7.2 g/dL (6.4-8.2)
[2016-10-28 18:45] LABS: ACETAMINOPHEN 0 ug/ml (10-30); SALICYLATE < 0.2 mg/dL (2.8-20.0)
[2016-10-28] MEDS ORDERED: CT SWABBABLE VALVE TRANS SET 1 EA INFUS.SET MC ONE (18:53)
[2016-10-28] MEDS ORDERED: IV NS 0.9% 250 ML IV ONE (18:53)
[2016-10-28] MEDS ORDERED: IOHEXOL-350 100 ML VIAL IV ONE (18:53)
--- NOTE | 2016-10-28 19:02 | NUR ---
PT TAKEN TO CT.
--- NOTE | 2016-10-28 19:21 | NUR ---
BACK FROM CT.
--- NOTE | 2016-10-28 21:28 | NUR ---
DR CAMPBELL AT BEDSIDE.
--- NOTE | 2016-10-28 21:40 | NUR ---
IV removed. Catheter intact and site benign. Pressure and 4x4 applied to site. No bleeding noted.
--- NOTE | 2016-10-28 21:40 | NUR ---
Patient discharged to home in stable condition. Written and verbal after care instructions given. Patient verbalizes understanding of instruction. Pt ambulatory with a steady gait.
[2016-10-28 21:41] VITALS: BP 110/74
== END 2016-10-28 21:42 | disposition home or self-care (01) ==
LOC: ER 17:10
DX: R53.1 Weakness (principal); F41.9 Anxiety disorder, unspecified; F11.23 Opioid dependence with withdrawal; F32.9 Major depressive disorder, single episode, unspecified; G89.29 Other chronic pain; F15.10 Other stimulant abuse, uncomplicated; Z90.49 Acquired absence of other specified parts of digestive tract; Z98.890 Other specified postprocedural states
CPT/HCPCS: 36415; 71275; 80048; 80076; 80305; 80329; 81001; 85025; 85378; 96360; 99285; A4606; G0480 ×2; J7030; J7050; Q9967; 81000-TC; Z7610

== ENCOUNTER 2017-04-08 13:32 | Emergency (ER) | payer MEDICARE, OTHER ==
[~2017-04-08] VITALS: Ht 182.9 cm; Wt 90.7 kg
[~2017-04-08 13:32] MED LIST changes: +ARIP5TAB10 PO; -ARIP5TAB4 PO
[2017-04-08 13:44] VITALS: BP 114/72
== END 2017-04-08 14:40 | disposition home or self-care (01) ==
LOC: ER 13:38
DX: L01.09 Other impetigo (principal); L02.828 Furuncle of other sites; Z90.49 Acquired absence of other specified parts of digestive tract; Z60.2 Problems related to living alone
CPT/HCPCS: A4606; Z7610

== ENCOUNTER 2019-06-28 14:54 | Emergency (ER) | payer MEDICARE, OTHER ==
[~2019-06-28] VITALS: Ht 182.9 cm; Wt 90.7 kg
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
[2019-06-28] MEDS ORDERED: TDAP [DIPH/PERTUSSIS/TET] 0.5 ML VIAL IM ONE ×2 (15:30→15:57)
[2019-06-28] MEDS ORDERED: IV NS 0.9% 1,000 ML BAG IV ONE (15:30)
[2019-06-28] MEDS ORDERED: ACETAMINOPHEN 325 MG TABLET ONE (15:56)
[2019-06-28] MEDS ORDERED: ACETAMINOPHEN 325 MG TABLET PO ONE (16:00)
--- NOTE | 2019-06-28 17:03 | NUR ---
Joel LYONS @ bedside patient stated hes ira BAUTISTA @ bedside and urine ,lab draw ,
[2019-06-28 17:07] LABS: APPEARANCE,URINE Clear (CLEAR); BILIRUBIN,URINE Negative (NEGATIVE); BLOOD, URINE Negative Ery/uL (NEGATIVE); COLOR,URINE Yellow (YELLOW); KETONES,URINE Trace (NEGATIVE); LEUKOCYTE ESTERASE ,URINE Negative (NEGATIVE); NITRITE, URINE Negative (NEGATIVE); PH,URINE 5.5 (5.0-8.0); PROTEIN,URINE Negative (NEGATIVE); UGLUCOSE Negative (NEGATIVE); UROBILINOGEN,URINE 0.2 EU/dL (0.2)
[2019-06-28 17:08] LABS: BASOPHILS % (AUTO) 0.1 % (0.0-2.0); EOSINOPHILS % (AUTO) 0.1 % (0.0-6.0); HEMATOCRIT 42 % (39-51); HEMOGLOBIN 14.1 g/dL (13.5-17.5); LYMPHOCYTES # (AUTO) 0.8 /CMM (0.8-4.8); LYMPHOCYTES % (AUTO) 6.8 % (20.0-44.0); MEAN CORPUSCULAR HGB CONC 34 g/dl (31.0-36.0); MEAN CORPUSCULAR VOLUME 88 fL (80-96); MONOCYTES # (AUTO) 0.8 /CMM (0.1-1.30); MONOCYTES % (AUTO) 6.4 % (2.0-12.0); NEUTROPHILS # (AUTO) 10.7 /CMM (1.8-8.9); NEUTROPHILS % (AUTO) 86.6 % (43.0-81.0); PLATELET COUNT (AUTO) 198 /CMM (150-450); RED BLOOD CELL COUNT(AUTO) 4.76 MIL/uL (4.5-6.0); WHITE BLOOD COUNT (AUTO) 12.4 K/uL (4.3-11.0)
[2019-06-28 17:16] LABS: BACTERIA,URINE Few /HPF (None Seen); RBC,URINE 0-2 /HPF (0-2); SQUAMOUS EPITHELIAL CELL,UR Few /HPF (None Seen); WBC,URINE 0-2 /HPF (0-3)
[2019-06-28 17:17] LABS: HYALINE CASTS, URINE Rare /LPF (None Seen)
[2019-06-28] MEDS ORDERED: LORAZEPAM INJ 2 MG/ML VIAL IV ONE (17:30)
[2019-06-28 17:39] LABS: ACETAMINOPHEN 1 ug/ml (10-30); ALANINE AMINOTRANSFERASE 49 U/L (12-78); ALBUMIN 3.7 g/dL (3.4-5.0); ALKALINE PHOSPHATASE 79 U/L (46-116); ASPARTATE AMINOTRANSFERASE 27 U/L (15-37); BILIRUBIN,DIRECT 0.1 mg/dL (0.0-0.2); BILIRUBIN,TOTAL 0.4 mg/dL (0.2-1.0); CALCIUM, SERUM 8.1 mg/dL (8.5-10.1); CARBON DIOXIDE 26 mmol/L (21-32); CHLORIDE 105 mmol/L (98-107); CREATININE 1.2 mg/dL (0.6-1.3); GLUCOSE 122 mg/dL (74-106); POTASSIUM 3.5 mmol/L (3.5-5.1); SODIUM SERUM 140 mmol/L (136-145); TOTAL PROTEIN, SERUM 6.8 g/dL (6.4-8.2); UREA NITROGEN, BLOOD 14 mg/dL (7-18)
[2019-06-28 17:40] LABS: SALICYLATE 0.9 mg/dL (2.8-20.0)
[2019-06-28] MEDS ORDERED: LORAZEPAM INJ 2 MG/ML VIAL ONE (17:52)
--- NOTE | 2019-06-28 18:00 | NUR ---
Patient awake alert non distress no halucination no agitaion remain Sinus 110 non sustain denies chestpain continue to monitor
[2019-06-28 18:03] LABS: ALCOHOL, BLOOD < 3 mg/dL (0-0)
--- NOTE | 2019-06-28 18:11 | NUR ---
CALLED AND LEFT A MSG TO DAVID AZUL. UNIT MANAGER.
--- NOTE | 2019-06-28 19:28 | NUR ---
Report given to Mercedez Solano awaiting for black jack dealer
--- NOTE | 2019-06-28 19:40 | NUR ---
SPOKE WITH PT'S MAYUR, REQUESTING TO CALL HER PRIOR TO DISCHARGE
--- NOTE | 2019-06-28 20:06 | NUR ---
PT RESTING COMFORTABLY. VSS.
--- NOTE | 2019-06-28 21:00 | NUR ---
ATTEMPTED TO CONTACT LEVEL VIAL INSPECTOR AND TESTER DAVID AZUL FOR EVALUATION. LEFT MESSAGE
--- NOTE | 2019-06-28 21:06 | NUR ---
CONTROL ANALYST DAVID AZUL AWARE TO EVALUATE PATIENT
--- NOTE | 2019-06-28 22:37 | NUR ---
PT STATES HE IS WILLING TO GO [facility] TO [facility]. CLINICAL INFORMATION FAXED TO [facility] INTAKE
--- NOTE | 2019-06-29 00:45 | NUR ---
PT C/O ABDOMINAL PAIN AND ANXIETY. PER VERBAL MD ORDER WILL ADMINISTER MAALOX PO AND ATIVAN 1MG PO X1 NOW
[2019-06-29] MEDS ORDERED: MAG HYDROX/AL HYDROX/SIMETH 30 ML UDC ONE (00:49)
[2019-06-29] MEDS ORDERED: LIDOCAINE VISCOUS 2% UD 15 ML UDC ONE (00:49)
[2019-06-29] MEDS ORDERED: LORAZEPAM 1 MG TABLET ONE (00:50)
--- NOTE | 2019-06-29 00:59 | NUR ---
PER ELDER FROM [facility] INTAKE, NO BED AVAILABLE AT THIS TIME
[2019-06-29] MEDS ORDERED: LIDOCAINE VISCOUS 2% UD 15 ML UDC MM ONE (01:00)
[2019-06-29] MEDS ORDERED: LORAZEPAM 1 MG TABLET PO ONE (01:00)
[2019-06-29] MEDS ORDERED: MAG HYDROX/AL HYDROX/SIMETH 30 ML UDC PO ONE (01:00)
--- NOTE | 2019-06-29 05:16 | NUR ---
PER ELDER FROM [facility] INTAKE, NO BEDS AVAILABLE AT THIS TIME
[2019-06-29 07:13] VITALS: BP 97/61
--- NOTE | 2019-06-29 07:17 | NUR ---
SPOKED TO MAYUR FOR PT DISCHARGE TO HOME.
--- NOTE | 2019-06-29 07:25 | NUR ---
PT STATED THAT HE IS NOT SUICIDAL ANYMORE AND WANTS TO GO HOME, CALLED AWARE OF PT DISCHARGE.
--- NOTE | 2019-06-29 07:47 | NUR ---
Patient discharged to home in stable condition. Written and verbal after care instructions given. Patient verbalizes understanding of instruction.IV removed. Catheter intact and site benign. Pressure and 4x4 applied to site. No bleeding noted.
== END 2019-06-29 07:48 | disposition home or self-care (01) ==
LOC: ER 15:03
DX: S01.111A Laceration without foreign body of right eyelid and periocular area, initial encounter (principal); S50.311A Abrasion of right elbow, initial encounter; S09.8XXA Other specified injuries of head, initial encounter; R45.851 Suicidal ideations; R00.0 Tachycardia, unspecified; R51 Headache; Z98.890 Other specified postprocedural states; Z60.2 Problems related to living alone; Z79.899 Other long term (current) drug therapy; Y04.8XXA Assault by other bodily force, initial encounter; Y93.89 Activity, other specified; Y92.89 Other specified places as the place of occurrence of the external cause; Y99.8 Other external cause status
CPT/HCPCS: 12011; 36415; 70450; 73070; 80048; 80076; 80305; 80307; 80329; 81001; 85025; 90471; 90715; 93005; 96374; 99285; G0480; J2060; J7030; 81000-TC

== ENCOUNTER 2019-11-29 00:57 | Emergency (ER) | payer MEDICARE, OTHER ==
[~2019-11-29] VITALS: Ht 180.3 cm; Wt 88.5 kg
[2019-11-29 01:42] VITALS: BP 119/69
[2019-11-29] MEDS ORDERED: CEPHALEXIN MONOHYDRATE 500 MG CAPSULE PO ONE (01:43)
[2019-11-29] MEDS: CEPHALEXIN MONOHYDRATE 500 MG CAPSULE PO ONE (01:47)
== END 2019-11-29 01:57 | disposition home or self-care (01) ==
LOC: ER 01:03
DX: L03.113 Cellulitis of right upper limb (principal); F41.9 Anxiety disorder, unspecified; F32.9 Major depressive disorder, single episode, unspecified; F90.9 Attention-deficit hyperactivity disorder, unspecified type; Z98.890 Other specified postprocedural states; Z60.2 Problems related to living alone; Z79.899 Other long term (current) drug therapy

== ENCOUNTER 2021-09-15 23:56 | Emergency (ER) | payer MEDICARE, OTHER ==
[~2021-09-15] VITALS: Ht 180.3 cm; Wt 86.2 kg
[2021-09-16 00:25] VITALS: BP 135/93
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
--- NOTE | 2021-09-16 00:27 | NUR ---
DR. CONNOR CORREA AT PT'S BEDSIDE
--- NOTE | 2021-09-16 00:28 | NUR ---
Dillon oneil in [facility] - 09/16/21 at 0028 by HARRIET MD AT BEDSIDE
[2021-09-16] MEDS ORDERED: HYDR453. TP (00:32)
== END 2021-09-16 00:40 | disposition home or self-care (01) ==
LOC: ER 09-16 00:02
DX: L98.9 Disorder of the skin and subcutaneous tissue, unspecified (principal); F41.9 Anxiety disorder, unspecified; F32.A Depression, unspecified; Z60.2 Problems related to living alone; Z79.899 Other long term (current) drug therapy

== ENCOUNTER 2024-09-22 09:33 | Emergency (ER) | payer MEDICARE, OTHER ==
[~2024-09-22] VITALS: Ht 172.7 cm; Wt 77.6 kg
[~2024-09-22 09:33] MED LIST changes: +HYDR453. TP
[2024-09-22 09:50] VITALS: BP 120/75; TEMP 98.5; O2SAT 98
[2024-09-22 10:07] LABS: PLATELET COUNT (AUTO) 301 K/uL (150-450); RED BLOOD CELL COUNT(AUTO) 5.44 MIL/uL (4.5-6.0); RED CELL DISTRIBUTION WIDTH 14.4 % (11.5-15.0); WHITE BLOOD COUNT (AUTO) 8.2 K/uL (4.3-11.0)
[2024-09-22 10:09] LABS: APPEARANCE,URINE CLEAR (CLEAR); BLOOD, URINE NEGATIVE Ery/uL (NEGATIVE); LEUKOCYTE ESTERASE ,URINE NEGATIVE (NEGATIVE); NITRITE, URINE NEGATIVE (NEGATIVE); UGLUCOSE NEGATIVE (NEGATIVE)
[2024-09-22 10:14] LABS: CALCIUM, SERUM 8.5 mg/dL (8.5-10.1); CREATININE 1.0 mg/dL (0.6-1.3); SODIUM SERUM 142 mmol/L (136-145); UREA NITROGEN, BLOOD 13 mg/dL (7-18)
[2024-09-22 10:21] LABS: AMPHETAMINE, URINE NEGATIVE (NEGATIVE); BARBITURATE, URINE NEGATIVE (NEGATIVE); BENZODIAZEPINE, URINE NEGATIVE (NEGATIVE); CANNABINOID, URINE NEGATIVE (NEGATIVE); COCCAINE, URINE NEGATIVE (NEGATIVE); OPIATE, URINE NEGATIVE (NEGATIVE)
[2024-09-22 10:25] LABS: ALCOHOL, BLOOD < 3 mg/dL (0-10); ASPARTATE AMINOTRANSFERASE 20 U/L (15-37); TOTAL PROTEIN, SERUM 7.5 g/dL (6.4-8.2)
== END 2024-09-22 16:00 ==
LOC: ER 09:44
DX: R45.851 Suicidal ideations (principal); F32.A Depression, unspecified; F41.9 Anxiety disorder, unspecified; Z79.899 Other long term (current) drug therapy; Z98.890 Other specified postprocedural states; Z60.2 Problems related to living alone; Z20.822 Contact with and (suspected) exposure to COVID-19
CPT/HCPCS: 36415; 80048-TC; 80076-TC; 85025-TC; G0480

== ENCOUNTER 2024-11-19 20:12 | Emergency (ER) | payer MEDICARE, OTHER | END 2024-11-19 21:50 | disposition left against medical advice (07) | LOC: ER 20:14 | DX: R45.851 Suicidal ideations (principal); Z53.21 Procedure and treatment not carried out due to patient leaving prior to being seen by health care provider ==

== ENCOUNTER 2024-11-19 23:09 | Emergency (ER) | payer MEDICARE, OTHER ==
[~2024-11-19] VITALS: Ht 182.9 cm; Wt 97.1 kg
[2024-11-19 23:53] LABS: PLATELET COUNT (AUTO) 274 K/uL (150-450); RED BLOOD CELL COUNT(AUTO) 4.99 MIL/uL (4.5-6.0); RED CELL DISTRIBUTION WIDTH 14.7 % (11.5-15.0); WHITE BLOOD COUNT (AUTO) 7.8 K/uL (4.3-11.0)
[2024-11-20 00:05] LABS: CALCIUM, SERUM 8.8 mg/dL (8.5-10.1); CREATININE 1.3 mg/dL (0.6-1.3); SODIUM SERUM 142 mmol/L (136-145); UREA NITROGEN, BLOOD 15 mg/dL (7-18)
[2024-11-20 00:11] LABS: ALCOHOL, BLOOD < 3 mg/dL (0-10); ASPARTATE AMINOTRANSFERASE 21 U/L (15-37); TOTAL PROTEIN, SERUM 7.2 g/dL (6.4-8.2)
[2024-11-20 00:33] LABS: APPEARANCE,URINE CLEAR (CLEAR); BLOOD, URINE NEGATIVE Ery/uL (NEGATIVE); LEUKOCYTE ESTERASE ,URINE NEGATIVE (NEGATIVE); NITRITE, URINE NEGATIVE (NEGATIVE); UGLUCOSE NEGATIVE (NEGATIVE)
[2024-11-20 00:41] LABS: AMPHETAMINE, URINE NEGATIVE (NEGATIVE); BARBITURATE, URINE NEGATIVE (NEGATIVE); BENZODIAZEPINE, URINE NEGATIVE (NEGATIVE); CANNABINOID, URINE NEGATIVE (NEGATIVE); COCCAINE, URINE NEGATIVE (NEGATIVE); OPIATE, URINE NEGATIVE (NEGATIVE)
[2024-11-20 02:47] VITALS: BP 137/81; TEMP 98.2; O2SAT 96
== END 2024-11-20 02:47 ==
LOC: ER 23:11
DX: R45.851 Suicidal ideations (principal); F32.A Depression, unspecified; F41.9 Anxiety disorder, unspecified; Z79.899 Other long term (current) drug therapy; Z20.822 Contact with and (suspected) exposure to COVID-19; Z60.2 Problems related to living alone
CPT/HCPCS: 36415; 80048-TC; 80076-TC; 85025-TC; 98960; G0480